=== PATIENT | male | born 1995 | race Caucasian/White ===

== ENCOUNTER 2017-01-02 13:49 | Emergency (ER) | payer BC ==
[2017-01-02 14:00] VITALS: BP 142/51
--- NOTE | 2017-01-02 14:07 | UC ---
Throat Pain/Nasal Nico HPI - HPI Summary HPI Summary: 21 male presents with complaints of sore throat and right tonsil swelling that began approximately 5 days ago. Patient has been taking acetaminophen and allergy medication without much relief. Admits to some right ear pain, dry intermittent cough and fatigue. Patient states he saw a white patch on his right tonsil and that sore is what causes him pain. He says it has gone away and his sore throat has been getting somewhat better but thought it would be a good idea to get checked out. Denies nausea, vomiting. Admits to having a fever/ chills the first couple of days but no longer has one. Admits to some nasal congestion. - History of Current Complaint Chief Complaint: UCRespiratory Stated Complaint: SORE THROAT Time Seen by Provider: 01/02/17 13:57 Hx Obtained From: Patient Onset/Duration: Sudden Onset, Lasting Days - 5 days, Still Present Severity: Mild Pain Intensity: 6 Pain Scale Used: 0-10 Numeric Cough: Nonproductive - intermittent, minimal Associated Signs & Symptoms: Positive: Dysphagia, Nasal Discharge - Epiglottits Risk Factors Epiglottis Risk Factors: Negative - Allergies/Home Medications Allergies/Adverse Reactions: Allergies Allergy/AdvReac Type Severity Reaction Status Date / Time Cephalexin [From Keflex] Allergy Hives Verified 01/02/17 13:55 Home Medications: Home Medications Acetaminophen [Tylenol] 650 mg PO ONCE PRN 01/02/17 [History Confirmed 01/02/17] Allergy Medication 2 tab PO DAILY PRN 01/02/17 [History] PMH/Surg Hx/FS Hx/Imm Hx Endocrine History Of: Denies: Diabetes, Thyroid Disease, Hyperthyroidism, Hypothyroidism, Dyslipidemia Cardiovascular History Of: Denies: Cardiac Disorders, Hypertension, Pacemaker/ICD, Myocardial Infarction , Congestive Heart Failure, Atrial Fibrillation, Deep Vein Thrombosis, Bleeding Disorders Respiratory History Of: Denies: COPD, Asthma, Bronchitis, Pneumonia, Pulmonary Embolism GI/ History Of: Denies: Gastroesophageal Reflux, Ulcer, Gastrointestinal Bleed, Gall Bladder Disease, Kidney Stones, Diverticulitis, Renal Disease, Urosepsis Neurological History Of: Denies: TIA, CVA, Dementia, Seizures, Migraine Psychological History Of: Denies: Anxiety, Depression, Bipolar Disorder, Schizophrenia, Post Traumatic Stress Disorder Cancer History Of: Denies: Lung Cancer, Colorectal Cancer, Breast Cancer, Prostate Cancer, Cervical Cancer Other History Of: Negative For: HIV, Hepatitis B, Hepatitis C, Anticoagulant Therapy - Surgical History Surgical History: Yes Surgery Procedure, Year, and Place: TUBES EARS - Family History Known Family History: Negative: Cardiac Disease, Hypertension, Diabetes - Social History Alcohol Use: Weekly Substance Use Type: Marijuana Substance Use Comment - Amount & Last Used: last used 1 week ago Smoking Status (MU): Never Smoked Tobacco - Immunization History Vaccination Up to Date: Yes Review of Systems Constitutional: Fever, Chills, Fatigue Skin: Negative ENT: Sore Throat, Ear Ache, Nasal Discharge Respiratory: Cough Cardiovascular: Negative Gastrointestinal: Negative Neurovascular: Negative Musculoskeletal: Negative Neurological: Headache Psychological: Negative All Other Systems Reviewed And Are Negative: Yes Physical Exam Triage Information Reviewed: Yes Appearance: Well-Appearing, No Pain Distress, Ill-Appearing Vital Signs: Initial Vital Signs Temp 98.5 F 01/02/17 13:56 Pulse 53 01/02/17 13:56 Resp 16 01/02/17 13:56 BP 142/51 01/02/17 13:56 Pulse Ox 97 01/02/17 13:56 elevated BP noted. recommend follow up to re-check with PCP Vital Signs Reviewed: Yes Eye Exam: Normal Eyes: Positive: Conjunctiva Clear ENT: Positive: Normal ENT inspection, Hearing grossly normal, Pharyngeal erythema, TMs normal, TM red - right, Tonsillar swelling - minimal and bumpy texture b/l, Other: - airway patent, uvula midline no sign of peritonsillar abscess or epiglottitis, no sores or blisters noted. Negative: Nasal congestion , Nasal drainage, TM bulging, TM dull, Tonsillar exudate, Trismus, Muffled/ hoarse voice Dental: Positive: Cervical Lymphadenopathy. Negative: Percussion Tenderness @, Gross Decay/Caries @, Dental Fracture @, Abscess @, Cellulitis @ Neck: Positive: Supple, Nontender Respiratory: Positive: Chest non-tender, Lungs clear, Normal breath sounds, No respiratory distress, No accessory muscle use. Negative: Crackles, Rhonchi, Stridor, Wheezing Cardiovascular: Positive: RRR, No Murmur, Pulses Normal, Brisk Capillary Refill Abdomen Description: Positive: Nontender, Soft Bowel Sounds: Positive: Present Musculoskeletal Exam: Normal Neurological Exam: Normal Psychological Exam: Normal Skin Exam: Normal Skin: Negative: rashes Throat Pain/Nasal Course/Dx - Course Course Of Treatment: strep culture obtained and negative. patient was also tested for mono. results pending. patient will be treated symptomatically at this time for pharyngitis/rhnosinusitis with chloraseptic spray, ibuprofen and salt water swishes. antibiotic sent to pharmacy however patient advised to wait 3 days to see if symptoms worsen or persist. Patient is in agreement with this plan. aware of worsening signs and symptoms to watch out for. follow up. - Differential Dx/Diagnosis Differential Diagnosis/HQI/PQRI: Influenza, Mononucleosis, Otitis Media, Peritonsillar Abscess, Pharyngitis, Sinusitis, Tonsillitis, URI Provider Diagnoses: Pharyngitis, rhinosinusitis Discharge - Discharge Plan Condition: Stable Disposition: HOME Prescriptions: Azithromycin TAB* [Zithromax TAB (Z-CHLOE) 250 mg #6 tabs] 2 tab PO .TODAY, THEN 1 DAILY #1 chloe Patient Education Materials: Pharyngitis (ED), Tonsillitis (ED) Referrals: No Primary Care Phys,NOPCP [Primary Care Provider] - [facility] [Outside] Additional Instructions: Take prescribed antibiotic medication as directed ONLY if your sore throat does not improve or worsens in the next 3 days. You will hear about your [facility] test results tomorrow. Recommend using OTC Chloraseptic spray to help soothe sore throat. Drink plenty of fluids and get plenty of rest. do not share drinks and wash hands frequently to prevent spread of germs. Recommend swishing with salt water multiple times daily and taking Ibuprofen for pain and inflammation. If symptoms worsen or do not improve please return. Follow up with [facility].
[2017-01-02] MEDS ORDERED: Ibuprofen TAB* 400 MG PO ONE (14:37)
[2017-01-02 18:43] LABS: EBV Response YES
[2017-01-02 19:15] LABS: Mono Internal Control QC Line Present
[2017-01-04 13:37] LABS: EBV Capsid Ag IgG Ab Positive (Negative); EBV Capsid Ag IgM Ab Negative (Negative)
== END 2017-01-02 15:13 | disposition home or self-care (01) ==
LOC: UCCORT 13:49
DX: J02.9 Acute pharyngitis, unspecified (principal); J32.9 Chronic sinusitis, unspecified; Z88.1 Allergy status to other antibiotic agents; F12.90 Cannabis use, unspecified, uncomplicated
CPT/HCPCS: 36415; 86308; 86664; 86665; 87651; 99212; A9270-GY; G0463